=== PATIENT | female | born 1940 | race Caucasian/White ===

== ENCOUNTER → 2020-08-23 | Outpatient (CLI) | payer OTHER ==
[~2020-08-23] MED LIST: FOSFOMYCIN TROME3 GM PO
== END ==
LOC: CT 08:05
DX: R82.81 Pyuria (principal); N32.89 Other specified disorders of bladder; K76.9 Liver disease, unspecified
CPT/HCPCS: 36415; 82565; Q9965

== ENCOUNTER 2020-10-09 06:32 | Emergency (ER) | payer OTHER ==
[2020-10-09 07:05] LABS: HEMOGLOBIN 11.8 gm/dl (12.3-15.3); RED BLOOD COUNT 3.96 M/UL (4.00-5.10); WHITE BLOOD COUNT 8.6 K/UL (4.5-11.0)
[2020-10-09 07:29] LABS: BUN/CREATININE RATIO 26 (0-10)
== END 2020-10-09 11:15 | disposition home or self-care (01) ==
LOC: ER1 06:32
PROVIDERS: Emergency Medicine
DX: I10 Essential (primary) hypertension (principal); E11.9 Type 2 diabetes mellitus without complications; Z79.899 Other long term (current) drug therapy; Z90.710 Acquired absence of both cervix and uterus
CPT/HCPCS: 36415; 71045; 80053; 82550; 82553; 83735; 83874; 83880; 84484; 85025; 93005; 99285

== ENCOUNTER 2021-01-14 06:18 | Emergency (ER) | payer OTHER ==
[2021-01-14 06:42] LABS: HEMOGLOBIN 11.8 gm/dl (12.3-15.3); RED BLOOD COUNT 4.02 M/UL (4.00-5.10); WHITE BLOOD COUNT 7.7 K/UL (4.5-11.0)
[2021-01-14 07:11] LABS: BUN/CREATININE RATIO 19 (0-10)
[2021-01-14] MEDS ORDERED: FOSFOMYCIN TROME3 GM PO (09:01)
== END 2021-01-14 09:25 | disposition home or self-care (01) ==
LOC: ER1 06:18
PROVIDERS: Emergency Medicine
DX: N39.0 Urinary tract infection, site not specified (principal); I10 Essential (primary) hypertension; E11.9 Type 2 diabetes mellitus without complications; Z85.038 Personal history of other malignant neoplasm of large intestine; Z93.3 Colostomy status; Z79.899 Other long term (current) drug therapy
CPT/HCPCS: 70450; 71045; 80053; 81001; 82550; 82553; 83690; 83874; 84484; 85025; 87086; 93005; 99284

== ENCOUNTER 2021-07-01 07:14 | Emergency (ER) | payer OTHER ==
[2021-07-01 07:49] LABS: RED BLOOD COUNT 4.02 M/UL (4.00-5.10); WHITE BLOOD COUNT 7.9 K/UL (4.5-11.0)
[2021-07-01 08:09] LABS: BUN/CREATININE RATIO 24 (0-10)
[2021-07-01] MEDS ORDERED: HYDRALAZINE HCL25 MG PO (09:33)
== END 2021-07-01 09:45 | disposition home or self-care (01) ==
LOC: ER1 07:14
PROVIDERS: Physician Assistant
DX: I10 Essential (primary) hypertension (principal); E10.9 Type 1 diabetes mellitus without complications; Z90.710 Acquired absence of both cervix and uterus; Z91.040 Latex allergy status; Z88.8 Allergy status to other drugs, medicaments and biological substances
CPT/HCPCS: 71045; 80053; 81001; 82550; 82553; 83874; 84484; 85025; 87086; 93005; 96374; 99284; J0360

== ENCOUNTER 2021-12-18 01:15 | Inpatient (IN) | payer OTHER ==
[~2021-12-18] VITALS: Ht 167.6 cm; Wt 61.2 kg
[~2021-12-18 01:15] MED LIST changes: +HYDRALAZINE HCL25 MG PO
[2021-12-18 01:48] LABS: HEMOGLOBIN 12.1 gm/dl (12.3-15.3); RED BLOOD COUNT 4.02 M/UL (4.00-5.10); WHITE BLOOD COUNT 7.9 K/UL (4.5-11.0)
[2021-12-18] MEDS ORDERED: SOTALOL80 MG PO (10:29)
[2021-12-18] MEDS ORDERED: DULOXETINE HCL20 MG PO (10:29)
[2021-12-18] MEDS ORDERED: ATORVASTATIN CA10 MG PO (10:29)
[2021-12-18] MEDS ORDERED: JANUVIA50 MG PO (10:30)
[2021-12-18] MEDS ORDERED: ATIVAN1 MG PO (10:30)
[2021-12-18] MEDS ORDERED: LOSARTAN POTAS100 MG PO (10:30)
[2021-12-18] MEDS ORDERED: PROTONIX 40 MG40 M1 PO (10:31)
[2021-12-18] MEDS ORDERED: GLUCOTROL5 MG PO (10:31)
[2021-12-18] MEDS ORDERED: ASPIRIN EC81 MG PO (10:31)
--- NOTE | 2021-12-19 19:34 | NUR ---
NORMAL SALINE AT 100 CHECK SODIUM EVERY 4 HOURS STOP NORMAL SALINE IF MORE THAN [address] ESPINOSA [phone] CALL IF SODIUM IS LESS THAN [phone]
[2021-12-20 03:58] LABS: HEMOGLOBIN 10.9 gm/dl (12.3-15.3); WHITE BLOOD COUNT 7.3 K/UL (4.5-11.0)
[2021-12-20 04:02] LABS: RED BLOOD COUNT 3.59 M/UL (4.00-5.10)
[2021-12-20 04:36] LABS: BUN/CREATININE RATIO 16 (0-10)
--- NOTE | 2021-12-20 06:52 | NUR ---
NOTIFIED OF SODIUM 127 @ 4 AM , NEW ORDER HOLD NS AND REPAET SODIUM NOW.
[2021-12-21 07:02] LABS: HEMOGLOBIN 10.5 gm/dl (12.3-15.3); RED BLOOD COUNT 3.44 M/UL (4.00-5.10); WHITE BLOOD COUNT 8.8 K/UL (4.5-11.0)
[2021-12-21 08:54] LABS: BUN/CREATININE RATIO 13 (0-10)
[2021-12-22 07:09] LABS: HEMOGLOBIN 10.5 gm/dl (12.3-15.3); RED BLOOD COUNT 3.5 M/UL (4.00-5.10); WHITE BLOOD COUNT 7.9 K/UL (4.5-11.0)
[2021-12-22 07:48] LABS: BUN/CREATININE RATIO 11 (0-10)
[2021-12-22] MEDS ORDERED: SODIUM CHLORIDE1 G1 PO (14:00)
[2021-12-22] MEDS ORDERED: ISOSORBIDE MONO30 MG PO (14:00)
[2021-12-22] MEDS ORDERED: SENNA S TABLET1 EACH PO (14:29)
[2021-12-22] MEDS ORDERED: MIRALAX17 GM PO (14:29)
[2021-12-22] MEDS ORDERED: ELIQUIS 5 MG TAB5 MG PO (14:48)
== END 2021-12-22 15:02 | disposition home health service (06) | DRG 643 ==
LOC: ER1 01:15 → MED SURG 4 03:57 → CDU 03:57 → MED SURG 4 12:05
PROVIDERS: Emergency Medicine; Internal Medicine; Internal Medicine Nephrology; ADMIT Internal Medicine
PROC: B24BZZZ Ultrasonography of Heart with Aorta (ICD-10-PCS; principal; 2021-12-19)
DX: E22.2 Syndrome of inappropriate secretion of antidiuretic hormone (principal); K85.90 Acute pancreatitis without necrosis or infection, unspecified; M48.56XA Collapsed vertebra, not elsewhere classified, lumbar region, initial encounter for fracture; K57.92 Diverticulitis of intestine, part unspecified, without perforation or abscess without bleeding; E11.9 Type 2 diabetes mellitus without complications; Z20.822 Contact with and (suspected) exposure to COVID-19; E86.1 Hypovolemia; R74.01 Elevation of levels of liver transaminase levels; K59.00 Constipation, unspecified; I10 Essential (primary) hypertension; M54.9 Dorsalgia, unspecified; G89.29 Other chronic pain; I08.3 Combined rheumatic disorders of mitral, aortic and tricuspid valves; E78.5 Hyperlipidemia, unspecified; I48.0 Paroxysmal atrial fibrillation; Z79.01 Long term (current) use of anticoagulants; Z85.038 Personal history of other malignant neoplasm of large intestine; Z90.49 Acquired absence of other specified parts of digestive tract; Z85.3 Personal history of malignant neoplasm of breast; Z79.82 Long term (current) use of aspirin; Z93.3 Colostomy status; Z90.710 Acquired absence of both cervix and uterus
CPT/HCPCS: ECHO; 36415; 70551; 71045; 74150; 80048; 80053; 81001; 82150; 82436; 82533; 82550; 82553; 82962; 83690; 83935; 84133; 84295; 84300; 84443; 84484; 85025; 85027; 87086; 93005; 93306; 97116; 97116-GP-CQ; 97162; 97166; 99285; J1650; J2405; J7131; Q9967; U0002

== ENCOUNTER → 2022-01-17 | Outpatient (CLI) | payer OTHER ==
[~2022-01-17] MED LIST changes: +ASPIRIN EC81 MG PO; +ATIVAN1 MG PO; +ATORVASTATIN CA10 MG PO; +DULOXETINE HCL20 MG PO; +ELIQUIS 5 MG TAB5 MG PO; +GLUCOTROL5 MG PO; +ISOSORBIDE MONO30 MG PO; +JANUVIA50 MG PO; +LOSARTAN POTAS100 MG PO; +MIRALAX17 GM PO; +PROTONIX 40 MG40 M1 PO; +SENNA S TABLET1 EACH PO; +SODIUM CHLORIDE1 G1 PO; +SOTALOL80 MG PO
== END ==
LOC: CT 10:51
DX: N13.9 Obstructive and reflux uropathy, unspecified (principal); Z93.3 Colostomy status; Z85.048 Personal history of other malignant neoplasm of rectum, rectosigmoid junction, and anus; K44.9 Diaphragmatic hernia without obstruction or gangrene
CPT/HCPCS: Q9967

== ENCOUNTER 2022-01-23 09:11 | Observation (INO) | payer OTHER ==
[~2022-01-23] VITALS: Ht 167.6 cm; Wt 61.7 kg
[2022-01-23 10:26] LABS: HEMOGLOBIN 11.9 gm/dl (12.3-15.3); RED BLOOD COUNT 3.91 M/UL (4.00-5.10); WHITE BLOOD COUNT 8.6 K/UL (4.5-11.0)
[2022-01-23 10:52] LABS: BUN/CREATININE RATIO 15 (0-10)
[2022-01-24 04:17] LABS: HEMOGLOBIN 11.8 gm/dl (12.3-15.3); RED BLOOD COUNT 3.9 M/UL (4.00-5.10); WHITE BLOOD COUNT 8.8 K/UL (4.5-11.0)
[2022-01-24 04:54] LABS: BUN/CREATININE RATIO 13 (0-10)
== END 2022-01-24 18:01 | disposition home or self-care (01) ==
LOC: ER1 09:11 → M/S 13:54 → CDU 13:54 → M/S 22:14
PROVIDERS: Emergency Medicine; Physician Assistant Medical; ADMIT Internal Medicine
DX: G93.6 Cerebral edema (principal); R47.81 Slurred speech; R41.0 Disorientation, unspecified; I48.0 Paroxysmal atrial fibrillation; E87.1 Hypo-osmolality and hyponatremia; I10 Essential (primary) hypertension; E11.9 Type 2 diabetes mellitus without complications; E78.5 Hyperlipidemia, unspecified; Z85.038 Personal history of other malignant neoplasm of large intestine; Z85.3 Personal history of malignant neoplasm of breast; Z79.82 Long term (current) use of aspirin; Z79.01 Long term (current) use of anticoagulants; Z79.899 Other long term (current) drug therapy
CPT/HCPCS: 36415; 70450; 70496; 70498; 70551; 71045; 80048; 80053; 81001; 82550; 82553; 82962; 83735; 84484; 85025; 85027; 85610; 85730; 87040; 87086; 96374; 97161; 97165; 99285; G0378; J2405; Q9967